=== PATIENT | female | born 1990 | race Caucasian/White ===

== ENCOUNTER 2023-05-12 12:00 | Outpatient (CLI) | payer MEDICAID ==
[2023-05-12 17:38] LABS: BASOPHILS # (AUTO) 0.1 10^3/uL (0.0-0.1); BASOPHILS % (AUTO) 0.8 %; EOSINOPHILS # (AUTO) 0.1 10^3/uL (0.0-0.7); HCT - HEMATOCRIT 41.2 % (37.0-47.0); HGB - HEMOGLOBIN 12.6 g/dL (12.0-16.0); LYMPHOCYTES # (AUTO) 2.1 10^3/uL (1.5-3.5); LYMPHOCYTES % (AUTO) 34.6 %; MEAN CORPUSCULAR HEMOGLOBIN 27.2 pg (27.0-31.0); MEAN CORPUSCULAR HGB CONC 30.6 g/dL (32.0-36.0); MEAN PLATELET VOLUME 10.8 fL (7.9-10.8); MONOCYTES # (AUTO) 0.6 10^3/uL (0.0-1.0); MONOCYTES % (AUTO) 9.6 %; NEUTROPHILS # (AUTO) 3.2 10^3/uL (1.5-6.6); NEUTROPHILS % (AUTO) 52.7 %; PLT - PLATELET COUNT 282 10^3/uL (130-450); RED BLOOD COUNT 4.63 10^6/uL (4.20-5.40); RED CELL DISTRIBUTION WIDTH 12.8 % (12.0-15.0)
[2023-05-12 17:56] LABS: CALCIUM 9.2 mg/dL (8.5-10.3); CREATININE 0.6 mg/dL (0.6-1.3); POTASSIUM 4.1 mmol/L (3.5-4.5)
== END 2023-05-12 12:15 | disposition home or self-care (01) ==
LOC: LAB.N 12:00
PROVIDERS: ATTEND Physician Assistant Medical
DX: R20.2 Paresthesia of skin (principal)
CPT/HCPCS: 36415; 80048; 82607; 85025

== ENCOUNTER 2023-05-16 09:43 | Outpatient (CLI) | payer MEDICAID ==
--- NOTE | 2023-05-16 11:00 | XRAY Report ---
PROCEDURE: Lumbar Spine 2 View INDICATIONS: PARASTHESIA TECHNIQUE: 3 views of the lumbar spine were acquired. COMPARISON: None. FINDINGS: Bones: There are 4 nonrib-bearing lumbar vertebral bodies with a transitional lumbosacral vertebra no obdulio. There is normal bony alignment. No vertebral body compression fractures. No suspicious bony le sions. Mild lower lumbar facet arthropathy. Soft tissues: Overlying bowel gas pattern is normal. No suspicious soft tissue calcifications. IMPRESSION: 1. Incidental note made of 4 nonrib-bearing lumbar vertebral bodies with a transitional lumbosacral v ertebra. 2. Mild lower lumbar facet arthropathy. Reviewed by: Carlos Singh MD on 05/16/2023 10:59 AM [facility] Approved by: Carlos Singh MD on 05/16/2023 10:59 AM [facility] Station ID: [id number]
== END 2023-05-16 09:44 | disposition home or self-care (01) ==
LOC: DI 09:43
PROVIDERS: ATTEND Physician Assistant Medical
DX: R20.2 Paresthesia of skin (principal); M47.816 Spondylosis without myelopathy or radiculopathy, lumbar region; Q76.49 Other congenital malformations of spine, not associated with scoliosis